=== PATIENT | male | born 1950 | race Caucasian/White ===

== ENCOUNTER → 2021-04-09 | Outpatient (CLI) | payer OTHER | END | disposition home or self-care (01) | LOC: LAB SHORT 12:06 | DX: D48.5 Neoplasm of uncertain behavior of skin (principal) | CPT/HCPCS: 88305 ==

== ENCOUNTER 2024-10-11 06:29 | Day surgery (SDC) | payer OTHER ==
[~2024-10-11] VITALS: Ht 190.5 cm; Wt 92.0 kg
[~2024-10-11 06:29] MED LIST: Balanced Salt Epinephrine Irrigation Solution 500 mL IR PRN; Gentamicin Ophth IR Soln 4 MG/0.4 ML SYR IR SCH; Lidocaine HCl/Pf 1% 5 ML VIAL XX SCH; PHENYLEPHRINE\\TROPICAMIDE\\TETRACAINE OPHTHALMIC DILATING SOLN LEFTEYE PRN; Povidone-Iodine 450 DROP/30 ML Solution LEFTEYE SCH; Vancomycin Ophth IR Soln 10 MG/0.2 ML SYR IR SCH
[2024-10-11] MEDS ORDERED: NS 500 ML IV ONE ×2 (06:51→07:18)
[2024-10-11] MEDS ORDERED: EUTHYROX88 MC1 PO (07:08)
[2024-10-11] MEDS ORDERED: EUTHYROX75 MC1 PO (07:08)
[2024-10-11] MEDS ORDERED: AMLODIPINE BES2.5 MG PO (07:08)
[2024-10-11] MEDS ORDERED: Lisinopril2.5 MG PO (07:09)
[2024-10-11] MEDS ORDERED: TAMSULOSIN HCL0.4 M1 PO (07:09)
[2024-10-11] MEDS ORDERED: METF500 PO (07:09)
[2024-10-11] MEDS ORDERED: KERENDIA10 MG PO (07:10)
[2024-10-11] MEDS ORDERED: HYDCHL25 PO (07:10)
[2024-10-11] MEDS ORDERED: Simvastatin10 MG PO (07:10)
[2024-10-11] MEDS ORDERED: GLIP2.5ER PO (07:10)
--- NOTE | 2024-10-11 07:19 | NUR ---
10/11/24 0719 Michelle Conde CALL LIGHT WITHIN REACH. TETRACAINE IN LEFT EYE AT 0705 AND PLEDGETT IN AT 0706
[2024-10-11] MEDS ORDERED: Midazolam HCl 1MG / ML 2ML Vial ONE (08:00)
[2024-10-11] MEDS ORDERED: FentaNYL Citrate 50 MCG/ML 2 ML Injection ONE (08:01)
[2024-10-11] MEDS ORDERED: Tetracaine HCl 0.5% Opth Soln 15 ml LEFTEYE ONE (08:05)
--- NOTE | 2024-10-11 08:42 | NUR ---
10/11/[address] AT BEDSIDE AT 0842 SPEAKING TO PATIENT ABOUT DISCHARGE INSTRUCTIONS.
[2024-10-11 08:44] VITALS: BP 146/77
[2024-10-11] MEDS ORDERED: Povidone-Iodine 450 DROP/30 ML Solution XX ONE (15:29)
== END 2024-10-11 09:12 | disposition home or self-care (01) ==
LOC: ORSCSDS 06:29
PROVIDERS: Ophthalmology
PROC: 08RK3JZ Replacement of Left Lens with Synthetic Substitute, Percutaneous Approach (ICD-10-PCS; principal; 2024-10-11 08:00)
DX: H25.12 Age-related nuclear cataract, left eye (principal); E11.9 Type 2 diabetes mellitus without complications; I10 Essential (primary) hypertension; E78.00 Pure hypercholesterolemia, unspecified; Z79.84 Long term (current) use of oral hypoglycemic drugs; Z79.899 Other long term (current) drug therapy
CPT/HCPCS: 82947; J2250; J3010; J7040; V2632

== ENCOUNTER → 2024-10-25 | Outpatient (CLI) | payer OTHER ==
[~2024-10-25] MED LIST changes: +AMLODIPINE BES2.5 MG PO; -Balanced Salt Epinephrine Irrigation Solution 500 mL IR PRN; +EUTHYROX75 MC1 PO; +EUTHYROX88 MC1 PO; +GLIP2.5ER PO; -Gentamicin Ophth IR Soln 4 MG/0.4 ML SYR IR SCH; +HYDCHL25 PO; +KERENDIA10 MG PO; -Lidocaine HCl/Pf 1% 5 ML VIAL XX SCH; +Lisinopril2.5 MG PO; +METF500 PO; -PHENYLEPHRINE\\TROPICAMIDE\\TETRACAINE OPHTHALMIC DILATING SOLN LEFTEYE PRN; -Povidone-Iodine 450 DROP/30 ML Solution LEFTEYE SCH; +Simvastatin10 MG PO; +TAMSULOSIN HCL0.4 M1 PO; -Vancomycin Ophth IR Soln 10 MG/0.2 ML SYR IR SCH
== END | disposition home or self-care (01) ==
LOC: LAB 13:28 → LAB SHORT 13:28
DX: L30.0 Nummular dermatitis (principal); L08.0 Pyoderma
CPT/HCPCS: 87070; 87077; 87147; 87186; 87205

== ENCOUNTER → 2024-12-20 | Outpatient (CLI) | payer OTHER ==
[2024-12-20 12:27] LABS: Microalb/Creat Ratio UR, Rand 714.286 mg/g (0.000-30.000)
== END ==
LOC: LAB SHORT 09:06 → LAB 09:06
PROVIDERS: Internal Medicine
DX: E11.42 Type 2 diabetes mellitus with diabetic polyneuropathy (principal)
CPT/HCPCS: 82043; 82570